=== PATIENT | female | born 1975 | race Caucasian/White ===

== ENCOUNTER 2018-05-08 15:11 | Emergency (ER) | payer OTHER ==
[2018-05-08 17:07] VITALS: BP 118/57
[2018-05-08 17:31] LABS: Influenza A Molecular POSITIVE (Negative)
--- NOTE | 2018-05-08 17:46 | UC ---
FLU HPI - HPI Summary HPI Summary: 43-year-old female presents with 5 day history of fever, chills, fatigue, malaise, body aches, nasal congestion, nonproductive cough, mild shortness of breath, and wheezing. She is a one pack-a-day smoker. Denies ear pain, sore throat, dysphagia, chest pain, abdominal pain, nausea, vomiting, or diarrhea. - History of Current Complaint Chief Complaint: UCGeneralIllness Stated Complaint: URI Time Seen by Provider: 05/08/18 17:29 Hx Obtained From: Patient Hx Last Menstrual Period: 9 years Pain Intensity: 3 - Allergy/Home Medications Allergies/Adverse Reactions: Allergies Allergy/AdvReac Type Severity Reaction Status Date / Time tramadol Allergy Tachycardia Verified 05/08/18 16:51 Home Medications: Home Medications Gabapentin CAP(*) [Neurontin 100 mg CAP(*)] 100 mg PO TID PRN 05/08/18 [History Confirmed 05/08/18] Oxycodone TAB(NF) [Oxycodone HCl 10 MG] 10 mg PO TID PRN 05/08/18 [History Confirmed 05/08/18] oxyCODONE SR TAB(*) [Oxycontin 10 mg (*)] 10 mg PO BID 05/08/18 [History Confirmed 05/08/18] PMH/Surg Hx/FS Hx/Imm Hx - Additional Past Medical History Additional PMH: Rheumatoid arthritis Previously Healthy: Yes - Surgical History Surgical History: Yes Surgery Procedure, Year, and Place: 2006 Hysterectomy. left hand repair. hernia repair. gallbladder removed 2011 - Family History Known Family History: Positive: Non-Contributory - Social History Occupation: Employed Full-time Lives: With Family Alcohol Use: Occasionally Substance Use Type: None Smoking Status (MU): Heavy Every Day Tobacco Smoker Type: Cigarettes Amount Used/How Often: 1 PPD Review of Systems All Other Systems Reviewed And Are Negative: Yes Constitutional: Positive: Fever, Chills, Fatigue Skin: Negative: Rash Eyes: Negative: Drainage, Eye Redness ENT: Positive: Nasal Discharge, Sinus Congestion Respiratory: Positive: Cough. Negative: Shortness Of Breath Cardiovascular: Negative: Palpitations, Chest Pain Gastrointestinal: Negative: Abdominal Pain, Vomiting, Diarrhea, Nausea Genitourinary: Positive: Negative Musculoskeletal: Positive: Myalgia Neurological: Positive: Negative Physical Exam - Summary Physical Exam Summary: GENERAL APPEARANCE: Well developed, well nourished, alert and cooperative, and appears to be in no acute distress. EYES: Conjunctiva clear. No discharge. Vision is grossly intact. EARS: External auditory canals and tympanic membranes clear, hearing grossly intact. NOSE: Mild to moderate nasal congestion. THROAT: Mild pharyngeal erythema without tonsillar swelling or exudate. NECK: Neck supple, non-tender without lymphadenopathy. CARDIAC: Normal S1 and S2. No S3, S4 or murmurs. Rhythm is regular. There is no peripheral edema, cyanosis or pallor. Extremities are warm and well perfused. Capillary refill is less than 2 seconds. LUNGS: Clear to auscultation without rales, rhonchi, wheezing or diminished breath sounds. Dry nonproductive cough. ABDOMEN: Positive bowel sounds. Soft, nondistended, nontender. No guarding or rebound. No masses or hepatosplenomegally. MUSKULOSKELETAL: ROM intact to all extremities. No joint erythema or tenderness. Normal muscular development. Normal gait. SKIN: Skin normal color, texture and turgor with no lesions or eruptions. Triage Information Reviewed: Yes Vital Signs: Initial Vital Signs Temp 97.7 F 05/08/18 16:53 Pulse 104 05/08/18 16:53 Resp 20 05/08/18 16:53 BP 118/57 05/08/18 16:53 Pulse Ox 97 05/08/18 16:53 Vital Signs Reviewed: Yes Diagnostics - Laboratory Diagnostic Studies Completed/Ordered: Rapid flu positive for influenza A. Flu Course/Dx - Course Course Of Treatment: 43-year-old female presents with 5 day history of fever, chills, fatigue, malaise, body aches, nasal congestion, nonproductive cough, mild shortness of breath, and wheezing. She is a one pack-a-day smoker. Denies ear pain, sore throat, dysphagia, chest pain, abdominal pain, nausea, vomiting, or diarrhea. Afebrile. Vital signs stable. Exam reveals an adult female in no acute distress with [id number] nasal congestion, mild pharyngeal erythema, clear bilateral breath sounds, a dry nonproductive cough, and otherwise unremarkable exam. Rapid flu positive for influenza A. Recommending symptomatic treatment including Tessalon Perles for cough and albuterol inhaler as needed for shortness of breath and wheezing. She is to follow-up with her primary care provider in 7 days if symptoms do not improve. Anticipatory guidance and warning symptoms were reviewed with the patient. She verbalizes understanding and agrees with plan of care. - Differential Dx/Diagnosis Differential Diagnosis/HQI/PQRI: Bronchitis, Influenza, Pneumonia, Upper Respiratory Infection Provider Diagnosis: Influenza A Discharge - Sign-Out/Discharge Documenting (check all that apply): Patient Departure All imaging exams completed and their final reports reviewed: No Studies - Discharge Plan Condition: Stable Disposition: HOME Prescriptions: Albuterol HFA INHALER* [Ventolin HFA Inhaler*] 2 puff INH Q6H PRN #1 mdi PRN Reason: Sob/Wheezing Benzonatate CAP* [Tessalon 100 MG CAP*] 100 mg PO TID PRN #30 cap PRN Reason: Cough Patient Education Materials: Influenza (ED) Forms: *Work Release Referrals: Melissa Fernandez DIRECTOR OF [employer] [Primary Care Provider] - 7 Days (If no improvement in symptoms.) Additional Instructions: Your rapid flu test in the clinic today was positive for influenza A. Get plenty of rest. Drink plenty of fluids to avoid dehydration especially if you are running any fever. May take an over the counter decongestant such as Sudafed according to directions for congestion. Use Tessalon Perles 1 cap every 8 hours as needed for cough. Use albuterol inhaler 2 puffs every 6 hours as needed for shortness of breath or wheezing. Take over the counter acetaminophen (Tylenol) or ibuprofen (Advil, Motrin) according to directions as needed for pain or fever. Use salt water gargles several times a day if you have a sore throat. You may also use Chloraseptic spray or Cepacol lonzenges according to directions which contain a numbing medication and can provide some temporary relief from your sore throat. Follow up with your primary care provider in 7 days if symptoms persist. Seek immediate medical attention in the emergency room if you have fever greater than 100.5 F despite taking acetaminophen or ibuprofen, have chest pain , difficulty breathing, are unable to swallow, or have any worsening of symptoms. - Billing Disposition and Condition Condition: STABLE Disposition: Home
== END 2018-05-08 18:05 | disposition home or self-care (01) ==
LOC: UCEAST 15:11
DX: J10.1 Influenza due to other identified influenza virus with other respiratory manifestations (principal); R06.2 Wheezing; R06.02 Shortness of breath; M06.9 Rheumatoid arthritis, unspecified; Z88.5 Allergy status to narcotic agent; F17.210 Nicotine dependence, cigarettes, uncomplicated
CPT/HCPCS: 99212; G0463